=== PATIENT | male | born 1990 | race Caucasian/White ===

== ENCOUNTER 2020-07-04 13:56 | Emergency (ER) | payer SELFPAY ==
--- NOTE | 2020-07-04 14:26 | Emergency Department Report ---
Blank Doc - Documentation Documentation: 29-year-old male that presents with buttock abscess. Was sent by urgent care due to unable to perform I/D. This initial assessment/diagnostic orders/clinical plan/treatment(s) is/are subject to change based on patient's health status, clinical progression and re- assessment by fellow clinical providers in the ED. Further treatment and workup at subsequent clinical providers discretion. Patient/guardians urged not to elope from the ED as their condition may be serious if not clinically assessed and managed. Initial orders include: 1- Patient sent to [facility] for further evaluation and treatment
[2020-07-04 14:27] VITALS: BP 149/80
--- NOTE | 2020-07-04 17:43 | Emergency Department Report ---
- General Chief complaint: Skin/Abscess/Foreign Body Stated complaint: BOIL Time Seen by Provider: 07/04/20 14:25 Source: patient Mode of arrival: Ambulatory Limitations: No Limitations - History of Present Illness Initial comments: The patient was evaluated in the emergency department for symptoms described in the history of present illness. He/she was evaluated in the context of the global COVID-19 pandemic, which necessitated consideration that the patient might be at risk for infection with the virus that causes COVID-19. Institutional protocols and algorithms that pertain to the evaluation of patients at risk for COVID-19 are in a state of rapid change based on information released by regulatory bodies including the CDC and federal and state organizations. These policies and algorithms were followed during the patient's care in the emergency department. Please note that these policies, procedures and recommendations changed on a rapid basis. 29-year-old [place] male presents to the emergency room for 2-week history of a boil on his left gluteal cleft. Patient states that he was seen at urgent care and was placed on amoxicillin and ibuprofen. Patient reports he comes here because it is now draining and still painful. It is reported that patient's been using warm compresses to the area. Patient states he has completed his antibiotics. Patient has no past medical history currently takes no medications on a daily basis and has no known drug allergies. MD complaint: abscess/boil Onset/Timin -: week(s) Tetanus Up to Date: unsure Location: buttocks Severity scale (0 -10): 7 Quality: stabbing, aching Consistency: constant Improves with: none Worsens with: palpation, movement Associated symptoms: denies other symptoms Treatments Prior to Arrival: none - Related Data Previous Rx's Medication Instructions Recorded Last Taken Type Clindamycin [Clindamycin CAP] 300 mg PO Q8H #30 cap 07/04/20 Unknown Rx traMADoL [Ultram 50 MG tab] 50 mg PO Q6HR PRN #12 tablet 07/04/20 Unknown Rx Allergies Allergy/AdvReac Type Severity Reaction Status Date / Time No Known Allergies Allergy Unverified 07/04/20 17:43 Abscess Boil HPI - HPI Chief Complaint: Skin/Abscess/Foreign Body Stated Complaint: BOIL Time Seen by Provider: 07/04/20 14:25 Home Medications: Previous Rx's Medication Instructions Recorded Last Taken Type Clindamycin [Clindamycin CAP] 300 mg PO Q8H #30 cap 07/04/20 Unknown Rx traMADoL [Ultram 50 MG tab] 50 mg PO Q6HR PRN #12 tablet 07/04/20 Unknown Rx Allergies/Adverse Reactions: Allergies Allergy/AdvReac Type Severity Reaction Status Date / Time No Known Allergies Allergy Unverified 07/04/20 17:43 ED Review of Systems ROS: Stated complaint: BOIL Other details as noted in HPI Comment: All other systems reviewed and negative ED Past Medical Hx - Past Medical History Previous Medical History?: No - Surgical History Past Surgical History?: No - Social History Smoking Status: Never Smoker Substance Use Type: None - Medications Home Medications: Home Medications Medication Instructions Recorded Confirmed Last Taken Type Clindamycin [Clindamycin CAP] 300 mg PO Q8H #30 cap 07/04/20 Unknown Rx traMADoL [Ultram 50 MG tab] 50 mg PO Q6HR PRN #12 tablet 07/04/20 Unknown Rx ED Physical Exam - General Limitations: No Limitations General appearance: alert, in no apparent distress - Head Head exam: Present: atraumatic, normocephalic - Eye Eye exam: Present: normal appearance - ENT ENT exam: Present: mucous membranes moist - Respiratory Respiratory exam: Absent: accessory muscle use - Extremities Exam Extremities exam: Present: normal inspection, full ROM - Back Exam Back exam: Present: normal inspection, full ROM - Neurological Exam Neurological exam: Present: alert, oriented X3, normal gait - Psychiatric Psychiatric exam: Present: normal affect, normal mood - Expanded Skin Exam Expanded Type of lesion: Present: abscess (That is draining purulent discharge) Description of rash: Present: tenderness, erythematous, discharge, fluctuant, indurated (Mild induration) ED Course Vital Signs 07/04/20 14:24 Temperature 97.8 F Pulse Rate 95 H Respiratory 18 Rate Blood Pressure 149/80 O2 Sat by Pulse 100 Oximetry ED Medical Decision Making - Medical Decision Making 29-year-old [place] male presents to the emergency room for 2-week history of a boil on his left gluteal cleft. Patient states that he was seen at urgent care and was placed on amoxicillin and ibuprofen. Patient reports he comes here because it is now draining and still painful. It is reported that patient's been using warm compresses to the area. Patient states he has completed his antibiotics. Patient has no past medical history currently takes no medications on a daily basis and has no known drug allergies. Abscess is currently draining purulent discharge. Abscess is now fluctuant with mild induration surrounding. Patient is afebrile in triage. Discussed with patient that I will discharge him home on clindamycin recommend warm baths and to express discharge from open abscess. Tramadol for pain as well as [id number] Tylenol. Patient reports that the ibuprofen is starting to irritate his stomach. Critical care attestation.: If time is entered above; I have spent that time in minutes in the direct care of this critically ill patient, excluding procedure time. ED Disposition Clinical Impression: Abscess of buttock, left Disposition: [id number] TO HOME OR SELFCARE Is pt being admited?: No Does the pt Need Aspirin: No Condition: Stable Instructions: Abscess (ED) Additional Instructions: Please complete antibiotics as prescribed pain medication as needed. Be sure to soak in warm Epson salt water. Expresses much of the discharge out as possible. Follow-up with a primary care provider. Prescriptions: Clindamycin [Clindamycin CAP] 300 mg PO Q8H #30 cap traMADoL [Ultram 50 MG tab] 50 mg PO Q6HR PRN #12 tablet PRN Reason: Pain Referrals: PRIMARY CARE, [Primary Care Provider] - 3-5 Days [facility] [Provider Group] - 3-5 Days Forms: Work/School Release Form(ED), Accompanied Note
== END 2020-07-04 17:57 | disposition home or self-care (01) ==
LOC: ED 13:56
DX: L02.31 Cutaneous abscess of buttock (principal); Z79.899 Other long term (current) drug therapy
CPT/HCPCS: 99282